=== PATIENT | male | born 1970 | race Caucasian/White ===

== ENCOUNTER 2019-02-11 15:54 | Emergency (ER) | payer MEDICARE, SELFPAY ==
[2019-02-11 15:55] VITALS: BP 127/88; PULSE 83; RESP 16; TEMP 36.4; O2SAT 98; BMI 23.7
[2019-02-11 16:29] LABS: Absolute Neutrophil Count 11.6 X10^3/uL (2.0-7.7); Basophil# 0.06 X10^3/uL; Basophil% 0.4 % (0-1); Eosinophil# 0.03 X10^3/uL; Eosinophils% 0.2 % (0-5); Hematocrit 43.7 % (40-54); Hemoglobin 14.8 g/dL (13.0-16.5); Lymphocyte % 11.7 % (19-41); Mean Corp Hgb Conc 33.9 g/dL (32-36); Mean Corpuscular Hgb 29.6 pg (27.0-32.0); Mean Corpuscular Volume 87.4 fL (80-94); Mean Platelet Vol. 9.3 fl (6.2-12.0); Monocyte# 1.08 X10^3/uL; Monocyte% 7.4 % (0-10); NRBC Flagged by Analyzer 0 % (0-5); Neutrophil # 11.56 X10^3/uL (2.7-7.7); Neutrophil % 79.7 % (47-70); Platelet Count 338 K/mm3 (150-450); RBC Distribution Width SD 41.2 fl (35.1-43.9); White Blood Count 14.5 K/mm3 (4.4-11.0)
--- NOTE | 2019-02-11 16:41 | CT_ITS ---
STUDY: CT ABDOMEN AND PELVIS WITHOUT CONTRAST REASON FOR EXAM: Male, 48 years old. Right flank pain. RADIATION DOSAGE (If Supplied By Facility): CTDIvol = ( 6.69 ) mGy, DLP = ( 356.19 ) mGycm TECHNIQUE: Transaxial images were obtained from the dome of the diaphragm to the symphysis pubis without oral contrast, and without intravenous contrast. Sagittal and coronal images were reconstructed. Individualized dose optimization techniques were used for this CT. COMPARISON: None. FINDINGS: The lungs are mildly hyperexpanded. There are small calcified granulomata are seen in the left lung. The visualized portions of the heart are within normal limits. There is a 1.2 cm low-attenuation focus in segment 4A of the liver thought to be a cyst. A similar area measuring 1 cm is seen in segment IVb. Liver is otherwise unremarkable. Normal gallbladder and extrahepatic biliary system. Normal spleen. Normal pancreas. Normal bilateral adrenal glands. The right kidney is of normal size and cortical thickness. There is mild hydronephrosis. The right ureter is prominent to the urinary bladder. Just beyond the GE J there is a 2 mm calcification. Question recently passed stone versus calculi within a ureterocele. There is a bulging soft tissue density off the upper pole of the left kidney which may represent a cyst. This could be confirmed sonographically. The left kidney is otherwise unremarkable. Normal left ureter. Normal visualized stomach. Normal small intestine. There is sigmoid diverticulosis without acute inflammatory change. The proximal colon is unremarkable. The appendix is visualized and appears normal. There is diffuse atherosclerotic calcification of the abdominal aorta, without a demonstrated aneurysm. Normal inferior vena cava. Normal retroperitoneum. Normal urinary bladder. The prostate is mildly enlarged. There are multiple phleboliths in the pelvis without lymphadenopathy. No free air or free fluid is seen within the peritoneal cavity. There is a small umbilical hernia of omental fat. The abdominal wall is otherwise unremarkable. There are diffuse degenerative changes of the visualized lumbar spine. CT/Abdomen/Pelvis without Cont IMPRESSION: 1. Small calculus in the urinary bladder just beyond the right UVJ with mild right hydronephrosis and ureterectasis. Recently passed calculus versus calculus in a right ureterocele. 2. Hepatic cysts. 3. Atherosclerotic changes of the aorta. 4. Diverticulosis without inflammatory change. 5. Mild enlargement of the prostate. 6. Degenerative changes of the lumbar spine. Electronically Signed: Jesús Pate DO at 17:15 EDT Tel [phone], Service support ,
--- NOTE | 2019-02-11 16:44 | ED.DCSUM_ITS ---
- ER Visit Summary Date of Service: 02/11/19 Chief Complaint: Right flank pain History of Present Illness: The patient is a 48 M who has right flank pain. Started 12 hours ago. The pain is in the right flank and radiates to the right groin. He states that he dribbles when he urinates but he has not seen any blood. No dysuria but he has been going more frequently. He took no medications for this at home. Denies any fevers. No history of kidney stones in the past. Physical Examination: Vital signs reviewed. HEENT exam unremarkable. Heart is regular rate and rhythm without murmurs. Lungs are clear to auscultation. Abdomen is soft with tenderness in the right flank. Extremities reveal no edema. Skin exam normal. Neurologic exam normal. Test Results: Laboratory studies show a white blood count of 14.5, creatinine 1.38. Urinalysis has blood but no infection. CAT scan reveals a recently passed 2 mm stone in the bladder. Emergency Department Course and Treatment: The patient does have a kidney stone. He is feeling much better after Toradol morphine and Zofran. I feel he can be discharged with a few [place] for home. He will follow-up with his doctor Treatment Plan: [] Disposition: Discharge Impression: Right ureterolithiasis This note was generated with [employer] dictation software. It may contain incorrect words, spelling, and punctuation that were not noted in review of the chart prior to signing ED Disposition - Plan for ED Patient: Referrals: Víctor Webb MD [Primary Care Provider] -
[2019-02-11 16:49] LABS: Anion Gap 6 (5-15); BUN 26 mg/dL (7-18); BUN/Creat Ratio 18.8 RATIO (10-20); Calcium,Total 9.6 mg/dL (8.5-10.1); Chloride 105 mmol/L (98-107); Creatinine, Serum 1.38 mg/dL (0.70-1.30); EST Glomerular Filtration Rate 58 mL/min (>60); Est Glom Filt Rate - Afr Amer 71 mL/min (>60); Estimated Creatinine Clearance 71.85 ml/min; Glucose 111 mg/dL (74-106); Potassium 3.9 mmol/L (3.5-5.1); Sodium Level 138 mmol/L (136-145)
[2019-02-11] MEDS: 0.9% Normal Saline 1,000 ML 999 ML IV (16:49)
[2019-02-11] MEDS: Ketorolac 30 MG/ML Syringe IV (16:49)
[2019-02-11 17:46] LABS: Bacteria 0 SEEN /hpf (None Seen); Squamous Epithelial Cells - UA 0 SEEN /hpf (0-5)
[2019-02-11 17:51] LABS: Color, Urine Yellow (Yellow); Glucose, Dipstick Normal (Normal); Ketone-Dipstick 5 mg/dl (Negative); Leukocyte Esterase-Dipstick 25 /ul (Negative); Nitrite-Dipstick Negative (Negative); Occult Blood-Urine 250 /ul (Negative); Protein-Dipstick 30 mg/dl (Negative); Urine Bilirubin Dipstick Negative (Negative); Urine Clarity Clear (Clear); Urine Urobilinogen Normal (Normal)
[2019-02-11 18:06] LABS: Mucous, Urine 1+ /hpf (<or=2+); Red Blood Cells-Urine 25-50 SEEN /hpf (0-5)
[2019-02-11 18:07] LABS: White Blood Cells 0-5 SEEN /hpf (0-5)
[2019-02-11] MEDS: Ondansetron 4 MG/2 ML Vial IV (18:22)
[2019-02-11 18:23] VITALS: BP 117/75
[2019-02-11] MEDS: Morphine 4 MG/ML Syringe IV (18:24)
--- NOTE | 2019-02-11 18:55 | ED.DEP ---
ED Disposition - Plan for ED Patient: Disposition: Home or Assisted Living Instructions: KIDNEY STONE w/ Colic Prescriptions: Hydrocodone Bitart/Apap 5-325 [[place] 5MG-325MG] 1 tab PO Q6H PRN PRN 3 Days #10 tab PRN Reason: Pain Prescription Printed Referrals: Víctor Webb MD [Primary Care Provider] -
[2019-02-11 19:07] VITALS: PULSE 76; RESP 18; O2SAT 96
== END 2019-02-11 19:13 | disposition home or self-care (01) ==
PROVIDERS: Emergency Provider Emergency Medicine; Family Provider Family Medicine; PCP Family Medicine
DX: N21.0 Calculus in bladder (principal); Z72.0 Tobacco use
CPT/HCPCS: 74176; 80048; 81001; 85025; 96361; 96374; 96375; 99283; J7030; A4216; J2405